=== PATIENT | male | born 1965 | race Caucasian/White ===

== ENCOUNTER 2016-11-30 13:34 | Day surgery (SDC) | payer BC ==
--- NOTE | 2016-11-26 22:08 | HP ---
HISTORY AND PHYSICAL: DATE OF PLANNED ADMISSION AND SURGERY: 11/30/16 HISTORY OF PRESENT ILLNESS: Mr. Julio is a 51-year-old white male who is admitted with a right ureteral calculus for cystoscopy, right ureteroscopy, laser lithotripsy and right ureteral stent placement. Mr. Julio had past history of renal calculus disease and has not required any procedures in his kidneys in the past. About 5 weeks ago, he started having episodes of gross hematuria associated with left flank and then right flank pain. The gross hematuria resolved, but he kept on having right lower quadrant pain. He then developed irritative bladder symptoms with urgency, frequency, and suprapubic discomfort. There was no fever or chills. No burning on urination. Because of the above history, the patient had a non-contrast CT of the abdomen and pelvis. The study showed bilateral small nephrolithiasis, a moderate right hydroureteronephrosis with an 8-mm calculus at the right ureterovesical junction. No other abnormalities were noted. Because of the duration of his symptoms, and the size of the stone, the patient is admitted for the above procedure. 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 At that time, he had a left radical orchiectomy. He completed a full course of radiation therapy in January of 2011. He had been followed by Dr. Henson from the oncology service and has had no recurrent disease. The patient is otherwise in excellent health. MEDICATIONS: He is on no chronic medications. ALLERGIES: He denies any allergies to medications. PHYSICAL EXAMINATION GENERAL: Pleasant and healthy-looking white male, who does not look in acute pain. VITAL SIGNS: Blood pressure 110/80, pulse of 70. HEART: Normal. LUNGS: Normal. ABDOMEN: He has mild right CVA tenderness. Abdominal exam is normal. EXTERNAL GENITALIA: There is surgical absence of the left testis. The right testis feels normal. RECTAL: Showed slightly enlarged, but non-suspicious prostate. IMPRESSION: Symptomatic distal right ureteral calculus with the symptoms present on and off for the last 5 weeks. PLAN: Plan is for cystoscopy, right ureteroscopy, laser lithotripsy and right ureteral stent placement. I discussed the above plans in detail with the patient. All his questions were answered. He was instructed to carefully strain his urine and to report if the stone has passed preoperatively. [id number]/[facility] #: [id number] MTDD
[~2016-11-30 13:34] MED LIST: Buffered Lidocaine 0.9% SYRIN* 5 ML/SYR SYRINGE INTRADERM ONE; Buffered Lidocaine 0.9% SYRIN* 5 ML/SYR SYRINGE ONE; cefTRIAXone(*) 2 GM ADDV.VIAL IVPB ONE
[2016-11-30] MEDS ORDERED: Propofol* 10 MG/ML 20 ML BTL IV PUSH ONE (15:56)
[2016-11-30] MEDS ORDERED: fentaNYL* 50 MCG/ML 2 ML VIAL (100 MCG VIAL) ONE (15:56)
[2016-11-30] MEDS ORDERED: Lidocaine 2% PF * 5 ML VIAL ONE (15:56)
[2016-11-30] MEDS ORDERED: oxyCODONE/Acetamin 5/325 MG* TAB PO PRN (16:16)
[2016-11-30] MEDS ORDERED: DiMENhydriNATE IV* 50 MG/ML VIAL IV PUSH PRN (16:16)
[2016-11-30] MEDS ORDERED: Ondansetron INJ* 2 MG/ML VIAL IV PRN (16:16)
[2016-11-30] MEDS ORDERED: fentaNYL* 50 MCG/ML 2 ML VIAL (100 MCG VIAL) IV PRN (16:16)
[2016-11-30] MEDS ORDERED: Ibuprofen TAB* 400 MG ONE ×2 (17:46→17:48)
[2016-11-30] MEDS ORDERED: Ibuprofen TAB* 200 MG ONE (17:51)
[2016-11-30 17:52] VITALS: BP 119/79
--- NOTE | 2016-11-30 19:52 | RAD ---
INDICATION: Right ureteral stent insertion. COMPARISON: Comparison is made with a prior CT of the abdomen and pelvis from November 26, 2016. TECHNIQUE: 8 seconds of intermittent fluoroscopic guidance were provided and 9 spot films of the abdomen were centered on the right side. FINDINGS: There is partial opacification of the right renal collecting system. Subsequently there is placement of a double-J stent catheter on the right side. IMPRESSION: INTRAOPERATIVE CONTROL FILMS. CPT II Codes: 6045F
--- NOTE | 2016-12-01 14:06 | OP ---
CC: Asa Perry MD* OPERATIVE REPORT: DATE OF OPERATION: 11/30/16 - SDS DATE OF : 61 SURGEON: Heri Dodson MD ANESTHESIOLOGIST: Keshav Pennington MD ANESTHESIA: General. PRE-OP DIAGNOSIS: Distal right ureteral calculus (6 mm). POST-OP DIAGNOSIS: Distal right ureteral calculus (6 mm). OPERATIVE PROCEDURE: 1. Cystoscopy. 2. Right ureteroscopy and extraction of right ureteral calculus. 3. Right retrograde pyelography and placement of right ureteral stent (6-Citizen [place] ). INDICATION FOR PROCEDURE: Mr. Julio is a 51-year-old male who started having right flank pain, episodes of gross hematuria followed by irritative bladder symptoms 5 weeks ago. Non-contrast CT of the abdomen and pelvis showed a mild- to-moderate right hydroureteronephrosis and a 6 mm calculus in the distal right ureter. Because of the above history and findings, the duration of his symptoms, the above operation was advised and accepted. PATHOLOGY AT CYSTOSCOPY: The penile and bulbar urethrae looked normal. The prostatic urethra measured about 2.5 cm in length. There was moderate degree of obstruction by prostate enlargement. Examination of the bladder showed significant degree of edema and hyperemia involving the whole right trigone and right ureteral orifice. This is likely to be secondary to irritation from the presence of the stone. No suspicious bladder lesions seen. No calculi or diverticulae noted. Upon right ureteroscopy, a 6 mm calculus was noted to be impacted in the intramural portion of the ureter. There was a brisk hydronephrotic drip of concentrated looking urine noted from the Rt ureteral orifice after the successful introduction of the guide wire. The stone had the gross appearance of a calcium oxalate stone. There was moderate dilatation of the ureter and collecting system proximal to the stone. DESCRIPTION OF PROCEDURE: After successful general anesthesia, the patient was placed in the lithotomy position and was prepped and draped for cystoscopy. Cystoscopy was performed. The bladder was carefully inspected and the above findings were noted. A flexible tip guidewire was then introduced into the right ureteral orifice and positioned in the area of the renal pelvis. A size 6.5 semirigid ureteroscope was then introduced inside the bladder. A flexible tip basket was then introduced through the port of the ureteroscope and its flexible tip was then introduced into the right orifice and used as a guide to pass the ureteroscope without trauma into the right ureter. The calculus was identified. It was disimpacted. It was then engaged in the basket and was extracted without trauma and sent for stone analysis. Right retrograde was then performed. A 6-Citizen [place] ureteral stent was then passed over the guidewire and positioned with the proximal end coiling in the renal pelvis and the distal end coiling inside the bladder. There was good drainage of contrast from the kidney and no extravasation. The patient tolerated the procedure well and left the operating room in good condition. The plan is to to leave the stent in place for 1 week. It will be removed in the office under local anesthesia. [id number]/[facility] #: [id number] JOI
== END 2016-11-30 18:00 | disposition home or self-care (01) ==
LOC: OR 13:34
PROVIDERS: ATTEND Urology
DX: N13.2 Hydronephrosis with renal and ureteral calculous obstruction (principal)
CPT/HCPCS: 74420; 82365; 88300; A9270-GY; C1876; J0696; J2704; J3010

== ENCOUNTER 2019-06-30 18:39 | Emergency (ER) | payer BC ==
[2019-06-30 19:13] LABS: ABS Eosinophils 0.1 10^3/ul (0-0.6); ABS Lymphocytes 0.8 10^3/ul (1.0-4.8); ABS Monocytes 0.5 10^3/ul (0-0.8); ABS Neutrophils 1.2 10^3/ul (1.5-7.7); Eosinophil % 4.5 %; Hematocrit 43 % (42-52); Lymphocyte % 31.3 %; Mean Corpuscular HGB Conc 35 g/dL (31-36); Mean Corpuscular Hemoglobin 32 pg (27-31); Mean Corpuscular Volume 91 fL (80-94); Mean Platelet Volume 6.6 fL (7.4-10.4); Nucleated Red Blood Cells % 0.2; Platelet Count 307 10^3/uL (150-450); Red Cell Distribution Width 14 % (10-15); White Blood Count 2.6 10^3/uL (3.5-10.8)
--- NOTE | 2019-06-30 19:13 | ED ---
HPI Chest Pain - HPI Summary HPI Summary: 54 year old male presents with chest pain today. States that started with back pain that moved to his chest. He states that it felt like an ache. He states that it radiated to his left arm. His chest pain has resolved. He denies any shortness of breath. He has had this pain before in December and had a negative stress test at that time. He denies any palpitations. No abd pain. States he was nauseous but has not been vomiting. He states pain made him feel like he was going to pass out. He does have family history of cardiac disease. Denies a history of diabetes or high blood pressure. He is nonsmoker. per records from [facility] stress test: normal with no evidence of ischemia or infarction. - History of Current Complaint Chief Complaint: EDChestPainROMI Time Seen by Provider: 06/30/19 19:00 Pain Intensity: 3 - Allergy/Home Medications Allergies/Adverse Reactions: Allergies Allergy/AdvReac Type Severity Reaction Status Date / Time No Known Allergies Allergy Verified 06/30/19 18:47 Home Medications: Home Medications Esomeprazole(NF) [NEXium(NF)] 20 mg PO DAILY 06/30/19 [History Confirmed ] PMH/Surg Hx/FS Hx/Imm Hx Endocrine/Hematology History: Denies: Hx Diabetes, Hx Systemic Lupus Erythematosus Cardiovascular History: Denies: Hx Congestive Heart Failure, Hx Hypertension Respiratory History: Reports: Other Respiratory Problems/Disorders - THROAT SURGERY FOR BENIGN OBSTRUCTION- [facility] GI History: Reports: Hx Gastroesophageal Reflux Disease, Hx Hiatal Hernia, Other GI Disorders - RIGHT INGUINAL REPAIR History: Reports: Hx Kidney Stones - HAS PASSED SEVERAL STONES IN PAST, HAS STONES BILTERALLY, Other Problems/Disorders - CURRENT ISSUES WITH RIGHT KIDNEY STONE, SEE BELOW Denies: Hx Dialysis, Hx Renal Disease Musculoskeletal History: Reports: Other Musculoskeletal History - BACK INJURY IN THE PAST, 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 RIGHT KNEE MENISCAL TEAR- - [facility] – [place]. RIGHT INGUINAL HERNIA REPAIR- [facility]. REMOVAL BENIGN THROAT OBSTRUCTION- [facility]. THROMBOSED HEMORRHOID- 2008- [facility] – [place]. LEFT TESTICULAR CA WITH SURGERY AND RADIATION- 2010- [facility] [place] Hx Anesthesia Reactions: No Infectious Disease History: No Infectious Disease History: Denies: Traveled Outside the [place] in Last 30 Days - Family History Known Family History: Positive: Cardiac Disease - Social History Alcohol Use: None Substance Use Type: Reports: None Smoking Status (MU): Never Smoked Tobacco Have You Smoked in the Last Year: No Review of Systems Negative: Fever Positive: Chest Pain Negative: Shortness Of Breath, Cough All Other Systems Reviewed And Are Negative: Yes Physical Exam Triage Information Reviewed: Yes Vital Signs On Initial Exam: Initial Vitals Temp Pulse Resp BP Pulse Ox 99.0 F 67 19 130/82 97 06/30/19 18:45 06/30/19 18:45 06/30/19 18:45 06/30/19 18:45 06/30/19 18:45 Vital Signs Reviewed: Yes Appearance: Positive: Well-Appearing Skin: Positive: Warm, Dry Head/Face: Positive: Normal Head/Face Inspection Eyes: Positive: Normal, Conjunctiva Clear ENT: Positive: Pharynx normal Respiratory/Lung Sounds: Positive: Clear to Auscultation, Breath Sounds Present Cardiovascular: Positive: Normal, RRR Abdomen Description: Positive: Nontender, Soft Bowel Sounds: Positive: Present Musculoskeletal: Positive: Normal, Other - nontender thoracic back Neurological: Positive: Normal Psychiatric: Positive: Normal Procedures - Sedation Patient Received Moderate/Deep Sedation with Procedure: No Diagnostics - Vital Signs Vital Signs Temp Pulse Resp BP Pulse Ox 06/30/19 19:07 72 06/30/19 18:45 99.0 F 67 19 130/82 97 - Laboratory Result Diagrams: 06/30/19 19:00 06/30/19 19:00 Lab Statement: Any lab studies that have been ordered have been reviewed, and results considered in the medical decision making process. - EKG No standard instances Cardiac Rate: NL EKG Rhythm: Sinus Rhythm EKG Comparison: No Significant Change Summary of EKG Findings: sinus rhythm Re-Evaluation - Re-Evaluation First Eval Re-Evaluation Time: 21:01 Comment: no chest pain, does have back pain, states had this same pain in dec and had GI and urology follow up that found nothing. Chest Pain Course/Dx - Course Course Of Treatment: 54 year old male presents with chest pain today. States that started with back pain that moved to his chest. He states that it felt like an ache. He states that it radiated to his left arm. His chest pain has resolved. He denies any shortness of breath. He has had this pain before in December and had a negative stress test at that time. He denies any palpitations. No abd pain. States he was nauseous but has not been vomiting. He states pain made him feel like he was going to pass out. He does have family history of cardiac disease. Denies a history of diabetes or high blood pressure. He is nonsmoker. On exam lungs clear to auscultation. Heart regular rate and rhythm. EKG shows sinus rhythm that is the same as records from [facility]. d-dimer neg. wbc normal. troponin zero x2. had negative stress test in dec per records from [facility]. heart score 3. with history will give referral to cardiology. patient understand and agrees with plan. - Chest Pain Differential Diagnosis/HQI/PQRI: Angina, Chest Wall, Pulmonary Embolism - Diagnoses Provider Diagnoses: Atypical chest pain - Critical Care Time Critical Care Statement: Critical care time is provided exclusive of any time spent performing procedures. Discharge ED - Sign-Out/Discharge Documenting (check all that apply): Patient Departure - Discharge Plan Condition: Good Disposition: HOME Patient Education Materials: Chest Pain (ED) Referrals: Asa Perry MD [Primary Care Provider] - Laura Pat MD [Medical Doctor] - Additional Instructions: follow up with primary within 5 days a referral was given to cardiology Take Tylenol every 6 hours as needed for pain Return to ED if develop any new or worsening symptoms - Billing Disposition and Condition Condition: GOOD Disposition: Home - Attestation Statements Provider Attestation: I was available for consult. This patient was seen by the [facility]. The patient was not presented to, seen by, or examined by me. Pablo Campbell MD
[2019-06-30] MEDS ORDERED: Aspirin 81 mg CHEW TAB* 81 MG TAB.CHEW PO ONE (19:15)
[2019-06-30 19:26] LABS: INR 1.09 (0.82-1.09)
[2019-06-30 19:31] LABS: Albumin 4.2 g/dL (3.2-5.2); Albumin/Globulin Ratio 1.4 (1-3); Calcium 9.1 mg/dL (8.6-10.3); EGFR African American 100.5 (>60); Globulin 2.9 g/dL (2-4); Potassium 3.6 mmol/L (3.5-5.0); Total Bilirubin 0.5 mg/dL (0.2-1.0); Total Protein 7.1 g/dL (6.4-8.9)
[2019-06-30 21:19] LABS: C Reactive Protein 1.32 mg/L (<8.01)
[2019-06-30 22:28] VITALS: BP 122/81
== END 2019-06-30 22:26 | disposition home or self-care (01) ==
LOC: ED 18:39
DX: R07.89 Other chest pain (principal); M54.9 Dorsalgia, unspecified; K21.9 Gastro-esophageal reflux disease without esophagitis; Z87.442 Personal history of urinary calculi; R94.31 Abnormal electrocardiogram [ECG] [EKG]; Z79.899 Other long term (current) drug therapy
CPT/HCPCS: 36415; 71045; 80053; 84484; 85025; 85379; 85610; 86140; 93005; 99283; A9270-GY